=== PATIENT | female | born 1960 | race Caucasian/White ===

== ENCOUNTER 2022-05-11 15:48 | Emergency (ER) | payer BC ==
[~2022-05-11] VITALS: Ht 162.6 cm; Wt 98.6 kg
[2022-05-11] MEDS ORDERED: VICTOZA 3-0.6 MG/0.1 SQ (16:20)
[2022-05-11] MEDS ORDERED: METFORMIN HYD1000 MG PO (16:21)
[2022-05-11] MEDS ORDERED: OLMESARTAN MEDO40 MG PO (16:21)
[2022-05-11] MEDS ORDERED: LANTUS PEN100 U/ML SQ (16:21)
[2022-05-11] MEDS ORDERED: ABILIFY 15MG TA15 MG PO (16:22)
[2022-05-11] MEDS ORDERED: ALPRAZOLAM1 MG PO (16:23)
[2022-05-11] MEDS ORDERED: TRINTELLIX PO (16:23)
[2022-05-11] MEDS ORDERED: RELPAX 40MG TAB40 MG PO (16:24)
[2022-05-11] MEDS ORDERED: IMITREX100 M1 PO (16:24)
[2022-05-11 19:12] VITALS: BP 148/90
== END 2022-05-11 19:14 | disposition home or self-care (01) ==
LOC: ED 15:48
DX: S06.0X0A Concussion without loss of consciousness, initial encounter (principal); S00.93XA Contusion of unspecified part of head, initial encounter; Z28.310 Unvaccinated for COVID-19; W01.198A Fall on same level from slipping, tripping and stumbling with subsequent striking against other object, initial encounter; Y92.480 Sidewalk as the place of occurrence of the external cause
CPT/HCPCS: J1885

== ENCOUNTER → 2022-11-08 | Outpatient (CLI) | payer BC ==
[~2022-11-08] MED LIST: ABILIFY 15MG TA15 MG PO; ALPRAZOLAM1 MG PO; IMITREX100 M1 PO; LANTUS PEN100 U/ML SQ; METFORMIN HYD1000 MG PO; OLMESARTAN MEDO40 MG PO; RELPAX 40MG TAB40 MG PO; TRINTELLIX PO; VICTOZA 3-0.6 MG/0.1 SQ
== END ==
LOC: RAD 08:39
DX: I77.89 Other specified disorders of arteries and arterioles (principal)
CPT/HCPCS: Q9967

== ENCOUNTER 2023-08-12 08:00 | Outpatient (RCR) | payer BC ==
[~2023-08-12 08:00] MED LIST changes: +AMLODIPINE BESYL5 MG PO; +ARMODAFINIL250 MG PO; +CYCLOBENZAPRINE10 M1 PO; +NORCO 325 MG-7.1 TA1 PO; +ONDANSETRON ODT8 MG PO; +OZEMPIC1 MG/0.71 SQ; +PROPRANOLOL HCL80 M4 PO; +QULIPTA60 MG PO; +STADOL NASA25 MG/BOT NS; +TRAZODONE HCL300 MG PO
[2023-08-20] MEDS ORDERED: UREA198 GM TP (15:59)
[2023-08-20] MEDS ORDERED: ACETAMINOPHEN-H1 TA2 PO (16:00)
[2023-08-20] MEDS ORDERED: CHOLESTYRAMINE P4 GM PO (16:07)
[2023-08-20] MEDS ORDERED: KLOR-CON M1515 MEQ PO (16:07)
[2023-08-20] MEDS ORDERED: ALPRAZOLAM1 MG PO (16:08)
[2023-08-20] MEDS ORDERED: ONDANSETRON HYDR4 MG PO (17:19)
== END 2023-08-20 15:25 ==
LOC: PT 08:00
DX: R53.1 Weakness (principal)

== ENCOUNTER 2023-08-20 15:37 | Emergency (ER) | payer BC ==
[~2023-08-20] VITALS: Ht 160 cm; Wt 96.4 kg
[2023-08-20] MEDS ORDERED: UREA198 GM TP (15:59)
[2023-08-20] MEDS ORDERED: ACETAMINOPHEN-H1 TA2 PO (16:00)
[2023-08-20] MEDS ORDERED: CHOLESTYRAMINE P4 GM PO (16:07)
[2023-08-20] MEDS ORDERED: KLOR-CON M1515 MEQ PO (16:07)
[2023-08-20] MEDS ORDERED: ALPRAZOLAM1 MG PO (16:08)
[2023-08-20 16:44] LABS: URINE APPEARANCE CLEAR; URINE BILIRUBIN NEGATIVE (NEGATIVE); URINE COLOR YELLOW; URINE GLUCOSE NEGATIVE (NEGATIVE); URINE KETONE 2+ (NEGATIVE); URINE NITRATE NEGATIVE (NEGATIVE); URINE PROTEIN(semi-quant) 2+ (NEGATIVE)
[2023-08-20 16:45] LABS: URINE BLOOD TRACE (NEGATIVE); URINE LEUKOCYTE ESTERASE NEGATIVE (NEGATIVE)
[2023-08-20 16:45] LABS: BASO # 0.05 K/mm3 (0.02-0.10); EOS # 0.13 K/mm3 (0.04-0.40); EOS % 0.7 % (1.0-5.0); HEMATOCRIT 47.1 % (37.0-47.0); HEMOGLOBIN 15.9 g/dL (12.5-16.0); MEAN CELL VOLUME 94 fl (78-100); MEAN CORPUSCULAR HEMOGLOBIN 32 pg (27-31); MEAN CORPUSCULAR HGB CONC 34 g/dL (33-37); MEAN PLATELET VOLUME 9.1 fl (7.4-10.4); MONO # 0.95 K/mm3 (0.20-0.80); NEU # 14.51 K/mm3 (1.40-6.50); PLATELET COUNT 323 K/mm3 (130-400); RED BLOOD COUNT 5.04 M/mm3 (4.10-5.30); RED CELL DISTRIBUTION WIDTH 11.8 % (11.5-14.5); WHITE BLOOD COUNT 18.5 K/mm3 (4.8-10.8)
[2023-08-20 16:53] LABS: ALBUMIN 4.1 g/dL (3.4-4.8)
[2023-08-20 16:55] LABS: CALCIUM 9.3 mg/dL (8.3-10.5)
[2023-08-20 16:56] LABS: TOTAL PROTEIN 6.7 g/dL (6.2-8.1)
[2023-08-20 16:58] LABS: TOTAL BILIRUBIN 0.5 mg/dL (0.2-1.2)
[2023-08-20] MEDS ORDERED: ONDANSETRON HYDR4 MG PO (17:19)
[2023-08-20 18:00] VITALS: BP 168/106
== END 2023-08-20 18:15 | disposition home or self-care (01) ==
LOC: ED 15:37
PROVIDERS: Physician Assistant
DX: K52.9 Noninfective gastroenteritis and colitis, unspecified (principal); E86.0 Dehydration
CPT/HCPCS: J1885; J2550; J3010; J7030

== ENCOUNTER → 2024-03-11 | Outpatient (CLI) | payer BC ==
[~2024-03-11] MED LIST changes: +ACETAMINOPHEN-H1 TA2 PO; +CHOLESTYRAMINE P4 GM PO; +KLOR-CON M1515 MEQ PO; +ONDANSETRON HYDR4 MG PO; +UREA198 GM TP
== END ==
LOC: RAD 13:07
DX: I63.89 Other cerebral infarction (principal); J01.00 Acute maxillary sinusitis, unspecified

== ENCOUNTER 2024-04-23 13:45 | Outpatient (RCR) | payer BC | END 2024-05-09 | disposition home or self-care (01) | LOC: PT | DX: M25.562 Pain in left knee (principal) ==

== ENCOUNTER 2024-06-09 08:00 | Outpatient (RCR) | payer BC | END 2024-07-09 | LOC: PT | DX: M25.562 Pain in left knee (principal) ==